=== PATIENT | male | born 1970 | race African-American/Black ===

== ENCOUNTER 2019-05-27 13:42 | Inpatient (IN) | payer SELFPAY ==
[2019-05-27 16:21] VITALS: BMI 26.1
--- NOTE | 2019-05-27 18:51 | HP ---
"CIWA Score Nausea/Vomitin-Mild Nausea/No Vomiting Muscle Tremors: 3 Anxiety: 3 Agitation: 0-Normal Activity Paroxysmal Sweats: 3 (Increased facial moisture) Orientation: 0-Oriented Tacttile Disturbances: 0-None Auditory Disturbances: 0-None Visual Disturbances: 0-None Headache: 2-Mild CIWA-Ar Total Score: 12 - Admission Criteria [facility] Guidelines: Admission for Medically Managed Detox: Requires at least one of the followin. CIWA greater than 12 2. Seizures within the past 24 hours 3. Delirium tremens within the past 24 hours 4. Hallucinations within the past 24 hours 5. Acute intervention needed for co occurring medical disorder 6. Acute intervention needed for co occurring psychiatric disorder 7. Severe withdrawal that cannot be handled at a lower level of care (continued vomiting, continued diarrhea, abnormal vital signs) requiring intravenous medication and/or fluids 8. Patient presents the following: CIWA greater than 12 Admission Criteria Met: Admission criteria met Admission ROS [facility] Chief Complaint: States I need treatment for alcohol and cocaine use. Allergies/Adverse Reactions: Allergies Allergy/AdvReac Type Severity Reaction Status Date / Time shrimp Allergy Severe Hives Verified 05/27/19 16:12 History of Present Illness: 48 yo presents w/ alcohol withdrawal and cocaine use disorder, requesting detox from alcohol and cocaine. Alcohol use began at age 17. Current use is x 1 year. Binge drinker. Drank 5 - 1/2 pints in past 3 days. Before last 3 days was drinking 1-3 nips every 2 days. Current KIT = 0.039 Utox: DUTCH+ Last blackout years ago. Denies seizures, overdoses. Cocaine use began at age 17. Current use x periodic 2-3x/month. Nicotine use began at age 15. Current smokes 1/2 PPD. Hx incarceration within past 2 years and currently homeless. PMHx: Denies significant PMH MHHx: Anxiety, Depression, Denies thoughts of harming self or others. Search Terms: Prateek Maldonado, 1970 Search Date: 05/27/2019 06:45:36 PM The Drug Utilization Report below displays all of the controlled substance prescriptions, if any, that your patient has filled in the last twelve months. The information displayed on this report is compiled from pharmacy submissions to the Department, and accurately reflects the information as submitted by the pharmacies. This report was requested by: Cheri Jimenez | Reference #: [id number] There are no results for the search terms that you entered. Search Terms: Prateek Joel, 1970 Search Date: 05/27/2019 06:46:58 PM States Searched: [place], [place], [place], [place], [place], [place], [place] The Drug Utilization Report below displays the controlled substance prescriptions, if any, that were dispensed in the indicated state(s). The information displayed on this report is compiled from requests submitted to other states' PMPs, and accurately reflects the information as returned by them. Blank odell indicate data not provided by other state. This report was requested by: Cheri Jimenez | Reference #: [id number] Exam Limitations: No Limitations - Ebola screening Have you traveled outside of the country in the last 21 days: No Have you had contact with anyone from an Ebola affected area: No Have you been sick,other than usual withdrawal symptoms: No (DENIES recent exposure to measles) Do you have a fever: No - Review of Systems Constitutional: Changes in sleep (Difficulty falliong and staying asleep) EENT: reports: Blurred Vision Respiratory: reports: No Symptoms reported Cardiac: reports: No Symptoms Reported GI: reports: No Symptoms Reported : reports: No Symptoms Reported Integumentary: reports: No Symptoms Reported Neuro: reports: Headache (mild headache - (R) temporal) Endocrine: reports: Increased Thirst Psychiatric: reports: Judgement Intact, Orientated x3, Anxious, Depressed Patient History - PPD History Previous Implant?: Yes Documented Results: Negative w/o proof Implanted On Prior [facility] Admission?: No PPD to be Administered?: Yes - Smoking Cessation Smoking history: Current every day smoker Have you smoked in the past 12 months: Yes Aproximately how many cigarettes per day: 10 Hx Chewing Tobacco Use: No Initiated information on smoking cessation: Yes 'Breaking Loose' booklet given: 05/27/19 - Substance & Tx. History Hx Alcohol Use: Yes Hx Substance Use: Yes Substance Use Type: Alcohol, Cocaine Hx Substance Use Treatment: Yes (day treatment programs, ) - Substances abused Alcohol Substance route: Oral Frequency: 3-6 times per week Amount used: 5 (1/2 pints) Age of first use: 11 Date of last use: 05/27/19 Cocaine Substance route: Smoking Frequency: 3-6 times per week Amount used: $200 Age of first use: 16 Date of last use: 05/26/19 Admission Physical Exam [facility] - Vital Signs Vital Signs: Vital Signs - 24 hr 05/27/19 16:10 Temperature 97.9 F Pulse Rate 89 Respiratory 18 Rate Blood Pressure 115/62 - Physical General Appearance: Yes: Nourished, Mild Distress, Tremorous (Slight tremors of hands), Sweating (Increased facial moisture), Anxious HEENTM: Yes: EOMI, Hearing grossly Normal, Normocephalic, Normal Voice, DARION, Pharynx Normal Respiratory: Yes: Lungs Clear, Normal Breath Sounds, No Respiratory Distress Neck: Yes: No masses,lesions,Nodules, Supple Breast: Yes: Breast Exam Deferred Cardiology: Yes: Regular Rhythm, Regular Rate, S1, S2 Abdominal: Yes: Normal Bowel Sounds, Non Tender, Soft Genitourinary: Yes: Within Normal Limits Back: Yes: Normal Inspection Musculoskeletal: Yes: full range of Motion, Gait Steady Extremities: Yes: Normal Capillary Refill, Normal Range of Motion, Tremors Neurological: Yes: corporate administrator II-XII NML intact, Fully Oriented, Alert, Motor Strength 5/5 Integumentary: Yes: Normal Color, Warm, Other (Thickened skin at bottom of feet) Lymphatic: Yes: Within Normal Limits - Diagnostic (1) Cocaine dependence, uncomplicated Current Visit: Yes Status: Chronic (2) Nicotine dependence, uncomplicated Current Visit: Yes Status: Chronic Qualifiers: Nicotine product type: cigarettes Qualified Code(s): F17.210 - Nicotine dependence, cigarettes, uncomplicated (3) Calluse Current Visit: Yes Status: Chronic Comment: Finger tips and bottom of feet (4) Alcohol dependence with uncomplicated withdrawal Current Visit: Yes Status: Acute Cleared for Admission [facility] - Detox or Rehab [facility] Level of Care: Medically Managed Detox Regimen/Protocol: Librium Claeared for Rehab Admission: No Breathalyzer - Breathalyzer Breathalyzer: 0.039 Urine Drug Screen - Test Device Lot number: [id number] Expiration date: 03/19/21 - Control Is test valid?: Yes - Results Drug screen NEGATIVE: No Urine drug screen results: DUTCH-Cocaine Inpatient Rehab Admission - Rehab Decision to Admit Inpatient rehab admission?: No"
[2019-05-27] MEDS ORDERED: METHOCARBAMOL 500 MG TABLET PO PRN (19:43)
[2019-05-27] MEDS ORDERED: IBUPROFEN 400 MG TABLET (FP) PO PRN (19:43)
[2019-05-27] MEDS ORDERED: ACETAMINOPHEN 325 MG TABLET (FP) PO PRN ×2 (19:43)
[2019-05-27] MEDS ORDERED: MAGNESIUM HYDROX 2400MG/30ML ORAL SUSPENSION 30 ML CUP PO PRN (19:43)
[2019-05-27] MEDS ORDERED: MENTHOL/PHENOL 1 EACH UD MM PRN (19:43)
[2019-05-27] MEDS ORDERED: chlordiazePOXIDE HCL 10 MG CAPSULE PO PRN (19:43)
[2019-05-27] MEDS ORDERED: NICOTINE POLACRILEX 2 MG GUM BUC PRN (19:43)
[2019-05-27] MEDS ORDERED: MAG HYDROX/AL HYDROX/SIMETH 30 ML UNIT-DOSE CUP PO PRN (19:43)
[2019-05-27] MEDS ORDERED: MELATONIN 5 MG TABLETS PO PRN (19:43)
[2019-05-27] MEDS ORDERED: MAGNESIUM CITRATE 300 ML BOTTLE PO PRN (19:43)
[2019-05-27] MEDS ORDERED: BISMUTH SUBSALICYLATE 524 MG/30 ML UD PO PRN (19:43)
[2019-05-27] MEDS: THIAMINE HCL 100 MG TABLET (FP) PO SCH (21:03)
[2019-05-27] MEDS: chlordiazePOXIDE HCL 25 MG CAPSULE PO SCH (21:04)
[2019-05-28] MEDS: chlordiazePOXIDE HCL 25 MG CAPSULE PO SCH ×3 (05:23→22:45)
[2019-05-28] MEDS: NICOTINE 14 MG/24 HOURS TOPICAL PATCH TD SCH (10:27)
[2019-05-28] MEDS: PRENATAL VITAMINS W/ FOLIC ACID TABLET (FP) PO SCH (10:27)
--- NOTE | 2019-05-28 11:19 | PN ---
[facility] CIWA - CIWA Score Nausea/Vomitin Muscle Tremors: 2 Anxiety: 2 Agitation: 2 Paroxysmal Sweats: No Perspiration Orientation: 0-Oriented Tacttile Disturbances: 1-Very Mild Itch/Numbness Auditory Disturbances: 1-Very Mild Visual Disturbances: 0-None Headache: 2-Mild CIWA-Ar Total Score: 12 [facility] Progress Note (SOAP) Subjective: alert,irritable,anxious,interrupted sleep,tremor Objective: Vital Signs Temperature 97.3 F L 05/28/19 09:31 Pulse Rate 74 05/28/19 09:31 Respiratory Rate 18 05/28/19 09:31 Blood Pressure 121/83 05/28/19 09:31 O2 Sat by Pulse Oximetry (%) labs pending Assessment: 05/28/19 11:18 withdrawal symptom Plan: continue detox librium regimen
[2019-05-28 12:14] LABS: HEMATOCRIT 44.3 % (35.4-49); HEMOGLOBIN 14.6 GM/dL (11.7-16.9); MCH 28.1 pg (25.7-33.7); MEAN CELL VOLUME 85.2 fl (80-96); MEAN PLT VOLUME 8.1 fl (7.5-11.1); PLATELET COUNT 285 K/MM3 (134-434); RDW 15.3 % (11.9-15.9); WHITE BLOOD COUNT 5.1 K/mm3 (4.0-10.0)
[2019-05-28 12:41] LABS: PH,URINE 5.5 (5.0-8.0); URINE APPEARANCE CLEAR; URINE BILIRUBIN NEGATIVE (NEGATIVE); URINE COLOR YELLOW; URINE GLUCOSE (UA) NEGATIVE (NEGATIVE); URINE KETONE NEGATIVE (NEGATIVE); URINE LEUK ESTERASE NEGATIVE (NEGATIVE); URINE NITRITE NEGATIVE (NEGATIVE); URINE PROTEIN NEGATIVE (NEGATIVE); URINE UROBILINOGEN 0.2 mg/dL (0.2-1.0)
[2019-05-28 12:50] LABS: ALBUMIN 3.5 g/dl (3.4-5.0); BILIRUBIN,TOTAL 0.8 mg/dL (0.2-1); BLOOD UREA NITROGEN 15.5 mg/dL (7-18); CALCIUM 8.9 mg/dL (8.5-10.1); CREATININE 1.1 mg/dL (0.55-1.3); POTASSIUM 4.2 mmol/L (3.5-5.1); TOT PROT 6.4 g/dl (6.4-8.2)
--- NOTE | 2019-05-28 14:35 | EKG ---
Test Reason : Blood Pressure : / mmHG Vent. Rate : 058 BPM Atrial Rate : 058 BPM P-R Int : 158 ms QRS Dur : 074 ms QT Int : 400 ms P-R-T Axes : 068 068 043 degrees QTc Int : 392 ms SINUS BRADYCARDIA WITH SINUS ARRHYTHMIA OTHERWISE NORMAL ECG NO PREVIOUS ECGS AVAILABLE Confirmed by Kwadwo Kunz ([id number]) on 05/28/2019 2:34:34 PM Referred By: Confirmed By:Kwadwo Kunz
[2019-05-28] MEDS: THIAMINE HCL 100 MG TABLET (FP) PO SCH (22:41)
[2019-05-29] MEDS: chlordiazePOXIDE 5 MG CAPSULE PO SCH ×3 (05:58→23:01)
[2019-05-29] MEDS: PRENATAL VITAMINS W/ FOLIC ACID TABLET (FP) PO SCH (11:14)
[2019-05-29] MEDS: NICOTINE 14 MG/24 HOURS TOPICAL PATCH TD SCH (11:15)
--- NOTE | 2019-05-29 13:29 | PN ---
S CIWA - CIWA Score Nausea/Vomitin-No Nausea/No Vomiting Muscle Tremors: 1-None Visible, but [place] Anxiety: 1-Mildly Anxious Agitation: 1-Slight > Activity Paroxysmal Sweats: No Perspiration Orientation: 0-Oriented Tacttile Disturbances: 0-None Auditory Disturbances: 0-None Visual Disturbances: 0-None Headache: 0-None Present CIWA-Ar Total Score: 3 [facility] Progress Note (SOAP) Subjective: pt states he is feeling fine today, here w/ alcohol withdrawal and cocaine use disorder O: Vital Signs - 24 hr 05/28/19 05/28/19 05/28/19 13:48 17:41 21:21 Temperature 98.3 F 98.2 F 98.1 F Pulse Rate 63 72 58 L Respiratory 18 18 18 Rate Blood Pressure 119/86 120/68 115/75 05/29/19 05/29/19 05/29/19 00:30 03:30 06:21 Temperature 97.2 F L Pulse Rate 60 Respiratory 18 18 18 Rate Blood Pressure 98/60 05/29/19 05/29/19 09:25 13:19 Temperature 97.7 F 98.2 F Pulse Rate 80 58 L Respiratory 18 18 Rate Blood Pressure 121/76 112/70 Laboratory Tests 05/28/19 05/28/19 05/28/19 06:00 06:00 06:00 WBC 5.1 RBC 5.20 Hgb 14.6 Hct 44.3 MCV 85.2 MCH 28.1 MCHC 33.0 RDW 15.3 Plt Count 285 MPV 8.1 Sodium 140 Potassium 4.2 Chloride 106 Carbon Dioxide 28 Anion Gap 6 L BUN 15.5 Creatinine 1.1 Est GFR (CKD-EPI)AfAm 90.88 Est GFR (CKD-EPI)NonAf 78.41 Random Glucose 83 Calcium 8.9 Total Bilirubin 0.8 AST 19 ALT 27 Alkaline Phosphatase 88 Total Protein 6.4 Albumin 3.5 Urine Color Urine Appearance Urine pH Ur Specific [place] Urine Protein Urine Glucose (UA) Urine Ketones Urine Blood Urine Nitrite Urine Bilirubin Urine Urobilinogen Ur Leukocyte Esterase RPR Titer Nonreactive 05/28/19 07:15 WBC RBC Hgb Hct MCV MCH MCHC RDW Plt Count MPV Sodium Potassium Chloride Carbon Dioxide Anion Gap BUN Creatinine Est GFR (CKD-EPI)AfAm Est GFR (CKD-EPI)NonAf Random Glucose Calcium Total Bilirubin AST ALT Alkaline Phosphatase Total Protein Albumin Urine Color Yellow Urine Appearance Clear Urine pH 5.5 Ur Specific [place] 1.025 Urine Protein Negative Urine Glucose (UA) Negative Urine Ketones Negative Urine Blood Negative Urine Nitrite Negative Urine Bilirubin Negative Urine Urobilinogen 0.2 Ur Leukocyte Esterase Negative RPR Titer a/p: continue detox protocol, pt doing well
[2019-05-29] MEDS: THIAMINE HCL 100 MG TABLET (FP) PO SCH (23:01)
[2019-05-30] MEDS ORDERED: chlordiazePOXIDE HCL 10 MG CAPSULE PO PRN
[2019-05-30] MEDS: chlordiazePOXIDE HCL 10 MG CAPSULE PO SCH ×3 (06:04→23:25)
[2019-05-30] MEDS: PRENATAL VITAMINS W/ FOLIC ACID TABLET (FP) PO SCH (10:25)
[2019-05-30] MEDS: NICOTINE 14 MG/24 HOURS TOPICAL PATCH TD SCH (10:25)
--- NOTE | 2019-05-30 10:48 | PN ---
[facility] CIWA - CIWA Score Nausea/Vomitin-Mild Nausea/No Vomiting Muscle Tremors: 1-None Visible, but [place] Anxiety: 2 Agitation: 2 Paroxysmal Sweats: No Perspiration Orientation: 0-Oriented Tacttile Disturbances: 0-None Auditory Disturbances: 0-None Visual Disturbances: 0-None Headache: 2-Mild CIWA-Ar Total Score: 8 S Progress Note (SOAP) Subjective: alert,irritable,anxious,interrupted sleep Objective: 05/30/19 10:48 Vital Signs Temperature 97.9 F 05/30/19 09:35 Pulse Rate 79 05/30/19 09:35 Respiratory Rate 16 05/30/19 09:35 Blood Pressure 113/68 05/30/19 09:35 O2 Sat by Pulse Oximetry (%) Assessment: 05/30/19 10:48 withdrawal symptom Plan: continue detox librium regimen,discharge in am
[2019-05-30] MEDS: THIAMINE HCL 100 MG TABLET (FP) PO SCH (23:26)
[2019-05-31] MEDS ORDERED: chlordiazePOXIDE HCL 10 MG CAPSULE PO ONE (05:00)
--- NOTE | 2019-05-31 09:38 | DS ---
[facility] Detox Discharge Summary Admission Date: 05/27/19 Discharge Date: 05/31/19 - History Present History: Alcohol Dependence, Cocaine Dependence - Physical Exam Results Vital Signs: Vital Signs Temperature 97.8 F 05/30/19 22:00 Pulse Rate 74 05/30/19 22:00 Respiratory Rate 18 05/31/19 03:30 Blood Pressure 104/65 05/30/19 22:00 O2 Sat by Pulse Oximetry (%) - Treatment Hospital Course: Detox Protocol Followed, Detoxed Safely, Responded well, Discharged Condition Good, Rehab Referral Accepted - Medication Discharge Medications: Ambulatory Orders NK [No Known Home Medication] 05/27/19 - Diagnosis (1) Alcohol dependence with uncomplicated withdrawal Current Visit: Yes Status: Chronic (2) Cocaine dependence, uncomplicated Current Visit: Yes Status: Chronic (3) Nicotine dependence, uncomplicated Current Visit: Yes Status: Chronic Qualifiers: Nicotine product type: cigarettes Qualified Code(s): F17.210 - Nicotine dependence, cigarettes, uncomplicated - AMA Did Patient Leave Against Medical Advice: No (pt referred to [facility]; pt declined rehab)
[2019-05-31 09:40] VITALS: BP 124/75; PULSE 62; TEMP 97.6
== END 2019-05-31 09:15 | disposition home or self-care (01) | DRG 774 ==
LOC: YASAS 13:42 → Y6N 20:18
PROVIDERS: ADMIT Surgery; ATTEND Surgery
PROC: HZ2ZZZZ Detoxification Services for Substance Abuse Treatment (ICD-10-PCS; principal; 2019-05-27)
DX: F10.230 Alcohol dependence with withdrawal, uncomplicated (principal); F14.20 Cocaine dependence, uncomplicated; F17.210 Nicotine dependence, cigarettes, uncomplicated; L84 Corns and callosities
CPT/HCPCS: 36415; 80053; 81003; 85027; 86480; 86593; 93005; 93010